=== PATIENT | female | born 1935 | race Caucasian/White ===

== ENCOUNTER 2022-07-10 03:41 | Emergency (ER) | payer BC, OTHER ==
[~2022-07-10] VITALS: Ht 162.6 cm; Wt 63.5 kg
[2022-07-10 03:41] VITALS: BP 200/90
--- NOTE | 2022-07-10 03:52 | NUR ---
PT IN ROOM 9 VIA EMS
--- NOTE | 2022-07-10 03:53 | NUR ---
DR BURNS AT BEDSIDE
[2022-07-10] MEDS ORDERED: NACL 0.9% 1,000 ML IV ONE (03:55)
[2022-07-10] MEDS ORDERED: hydrALAZINE 25 MG TAB PO ONE (04:00)
[2022-07-10 04:55] LABS: APPEARANCE,URINE CLEAR (CLEAR); BILIRUBIN,URINE NEGATIVE (NEGATIVE); BLOOD, URINE NEGATIVE (NEGATIVE); COLOR,URINE YELLOW (YELLOW); LEUKOCYTE ESTERASE ,URINE 1+ (NEGATIVE); NITRITE, URINE NEGATIVE (NEGATIVE); UGLUCOSE NEGATIVE (NEGATIVE)
[2022-07-10 05:10] LABS: RBC,URINE 0-5 /HPF (0-5)
[2022-07-10 05:40] LABS: ALBUMIN 3.8 g/dL (3.4-5.0); ANION GAP 13.2 (8-16); ASPARTATE AMINOTRANSFERASE 28 U/L (15-37); CARBON DIOXIDE 28.3 mmol/L (21-32); CHLORIDE 105 mmol/L (98-107); GLUCOSE 98 mg/dL (74-106); POTASSIUM 3.5 mmol/L (3.5-5.1); SODIUM SERUM 143 mmol/L (136-145); TOTAL BILIRUBIN 0.6 mg/dL (0.0-1.0); UREA NITROGEN, BLOOD 15 mg/dL (7-18)
--- NOTE | 2022-07-10 05:40 | NUR ---
FIRST CONTACT WITH PT. PT MEDICATED PER ORDERS GIVEN. AWAITING RESULTS.
[2022-07-10] MEDS ORDERED: hydrALAZINE 10 MG TAB ONE (05:42)
[2022-07-10 05:48] LABS: ACETAMINOPHEN < 0.5 ug/ml (10-30); SALICYLATE < 2.8 mg/dL (2.8-20.0)
[2022-07-10] MEDS ORDERED: CEPH-588 PO (06:48)
[2022-07-10 06:52] VITALS: BP 178/98
--- NOTE | 2022-07-10 06:52 | NUR ---
DR. BURNS AWARE OF B/P. PT OK TO BE DISCHARGED. DAUGHTER PRESENT.
--- NOTE | 2022-07-10 06:52 | NUR ---
Patient discharged with v/s stable. Written and verbal after care instructions given and explained. Patient alert, oriented and verbalized understanding of instructions. Wheel Chair Assisted with by caregiver. All questions addressed prior to discharge. ID band removed. Patient advised to follow up with PMD. Rx of KEFLEX given. Patient educated on indication of medication including possible reaction and side effects. Opportunity to ask questions provided and answered.
[2022-07-10 22:00] LABS: BASOPHILS # (AUTO) 0.2 K/uL (0.00-0.22); BASOPHILS % (AUTO) 3.3 % (0.0-2.0); EOSINOPHILS # (AUTO) 0.4 K/uL (0-0.4); EOSINOPHILS % (AUTO) 6.1 % (0.0-4.0); HEMATOCRIT 42.8 % (36-48); HEMOGLOBIN 14.6 g/dL (12.0-16.0); LYMPHOCYTES # (AUTO) 1.8 K/uL (2.5-16.5); LYMPHOCYTES % (AUTO) 29.8 % (20.5-51.1); MEAN CORPUSCULAR HEMOGLOBIN 31 pg (27-31); MEAN CORPUSCULAR HGB CONC 34 g/dL (33-37); MEAN CORPUSCULAR VOLUME 89.8 fL (80-94); MONOCYTES # (AUTO) 0.5 K/uL (0.8-1.0); MONOCYTES % (AUTO) 7.9 % (1.7-9.3); NEUTROPHILS # (AUTO) 3.1 K/uL (1.8-7.7); NEUTROPHILS % (AUTO) 52.9 % (42.2-75.2); PLATELET COUNT (AUTO) 195 K/uL (140-450); RED BLOOD CELL COUNT(AUTO) 4.77 MIL/uL (4.20-5.40); WHITE BLOOD COUNT (AUTO) 5.9 K/uL (4.8-10.8)
== END 2022-07-10 06:52 | disposition home or self-care (01) ==
LOC: MED 03:41
DX: R53.1 Weakness (principal); I10 Essential (primary) hypertension; Z86.73 Personal history of transient ischemic attack (TIA), and cerebral infarction without residual deficits; Z79.899 Other long term (current) drug therapy
CPT/HCPCS: 36415; 70450; 71045; 80053; 81001; 82550; 84484; 85025; 87086; 93005; 99285; G0480; G0482; Q0092

== ENCOUNTER 2022-12-25 17:20 | Inpatient (IN) | payer OTHER ==
[~2022-12-25] VITALS: Ht 172.7 cm; Wt 77.1 kg
[~2022-12-25 17:20] MED LIST: CEPH-588 PO
[2022-12-25 17:21] VITALS: BP 199/72; PULSE 78; RESP 17; TEMP 97.4; O2SAT 97
[2022-12-25] MEDS ORDERED: ONDANSETRON 4 MG/2 ML VIAL IVP ONE (17:35)
[2022-12-25] MEDS ORDERED: MORPHINE SULFATE 4 MG/ML SYR IVP ONE (17:35)
--- NOTE | 2022-12-25 17:53 | NUR ---
PT REFUSING IV AT THIS TIME
[2022-12-25 18:03] LABS: BASOPHILS # (AUTO) 0.1 K/uL (0.00-0.22); BASOPHILS % (AUTO) 0.7 % (0.0-2.0); EOSINOPHILS # (AUTO) 0.1 K/uL (0-0.4); EOSINOPHILS % (AUTO) 0.9 % (0.0-4.0); HEMATOCRIT 45.8 % (36-48); HEMOGLOBIN 15.4 g/dL (12.0-16.0); LYMPHOCYTES # (AUTO) 1.2 K/uL (2.5-16.5); LYMPHOCYTES % (AUTO) 10.5 % (20.5-51.1); MEAN CORPUSCULAR HEMOGLOBIN 30 pg (27-31); MEAN CORPUSCULAR HGB CONC 34 g/dL (33-37); MEAN CORPUSCULAR VOLUME 89.4 fL (80-94); MONOCYTES # (AUTO) 0.6 K/uL (0.8-1.0); MONOCYTES % (AUTO) 5.6 % (1.7-9.3); NEUTROPHILS # (AUTO) 9.3 K/uL (1.8-7.7); NEUTROPHILS % (AUTO) 82.3 % (42.2-75.2); PLATELET COUNT (AUTO) 239 K/uL (140-450); RED BLOOD CELL COUNT(AUTO) 5.12 MIL/uL (4.20-5.40); RED CELL DISTRIBUTION WIDTH 13.6 % (11.6-13.7); WHITE BLOOD COUNT (AUTO) 11.3 K/uL (4.8-10.8)
[2022-12-25] MEDS ORDERED: NACL 0.9% 1,000 ML IV ONE (18:25)
[2022-12-25 18:28] LABS: ALBUMIN 3.7 g/dL (3.4-5.0); ANION GAP 13.9 (8-16); ASPARTATE AMINOTRANSFERASE 27 U/L (15-37); CARBON DIOXIDE 28.1 mmol/L (21-32); CHLORIDE 103 mmol/L (98-107); GLUCOSE 133 mg/dL (74-106); LIPASE 40 U/L (73-393); SODIUM SERUM 141 mmol/L (136-145); TOTAL BILIRUBIN 0.5 mg/dL (0.0-1.0); UREA NITROGEN, BLOOD 16 mg/dL (7-18)
--- NOTE | 2022-12-25 19:02 | NUR ---
PT TAKEN TO CT VIA SHAMAR AT THIS TIME
--- NOTE | 2022-12-25 19:26 | NUR ---
PER PT PAIN IMPROVED. BUT WOULD LIKE SOME WATER. ER MD MADE AWARE- PER ER MD ICE CHIPS IS OK. GAVE ICE CHIPS TO PATIENT.
[2022-12-25] MEDS ORDERED: KETOROLAC 30 MG/ML VIAL IVP ONE (20:20)
--- NOTE | 2022-12-25 22:01 | NUR ---
assisted pt onto bed pain. pericare provided. pt tolerated well. pt safety measures are in place and pt attached to the chief of staff doctor
--- NOTE | 2022-12-25 23:18 | NUR ---
20:35- SPOKE WITH TARA Bundy MACHINE SPRING FORMER FOR CLINICALS
[2022-12-25] MEDS ORDERED: POTASSIUM CHLORIDE 10 MEQ TABER PO PRN (23:55)
[2022-12-25] MEDS ORDERED: HYDROcodone/APAP 7.5/325 MG 1 TAB PO PRN (23:55)
[2022-12-25] MEDS ORDERED: DOCUSATE SODIUM 100 MG GELCAP PO PRN (23:55)
[2022-12-25] MEDS ORDERED: ACETAMINOPHEN 325 MG TAB PO PRN (23:55)
[2022-12-25] MEDS ORDERED: NACL 0.9% 1,000 ML IV SCH (23:55)
[2022-12-25] MEDS ORDERED: ZOLPIDEM 5 MG TAB PO PRN (23:55)
[2022-12-25] MEDS ORDERED: ONDANSETRON 4 MG/2 ML VIAL IM/IVP PRN (23:55)
[2022-12-25] MEDS ORDERED: guaiFENesin DM 200/20 MG-10 ML 10 ML UDC PO PRN (23:55)
--- NOTE | 2022-12-26 00:40 | NUR ---
Patient will be admitted to care of BAHMAN WALTER. Admited to TELEMETRY. Will go to room 123A. Belongings list completed. Report to JACK.
[2022-12-26 00:55] VITALS: BP 158/77; PULSE 68; PULSE 77; RESP 18; TEMP 97.5; O2SAT 97
--- NOTE | 2022-12-26 00:55 | NUR ---
RECEIVED PT ADMIT FROM ER, ARRIVED BY SHAMAR. AWAKE, ALERT AND VERBALLY RESPONSIVE. PT ADMITTED WITH CHIEF COMPLAINTS OF ABDOMINAL PAIN. PT WITH HISTORY OF CVA AND HYPERTENSION. PT IS USING O2 INHALATION AND IS ON NPO.
--- NOTE | 2022-12-26 03:00 | NUR ---
PT IS SLEEPING WITH NO SOB OR DISTRESS. NO FACIAL GRIMACING.
[2022-12-26 04:00] VITALS: BP 153/69; PULSE 66; RESP 18; TEMP 97.5; O2SAT 97
[2022-12-26] MEDS ORDERED: SYN.075 PO (05:00)
[2022-12-26] MEDS ORDERED: FLUO10CA21 PO (05:00)
[2022-12-26] MEDS ORDERED: PANT40EC PO (05:00)
[2022-12-26] MEDS ORDERED: APR10 PO (05:00)
[2022-12-26] MEDS ORDERED: BENA40TA PO (05:01)
[2022-12-26] MEDS ORDERED: FURO-572 PO (05:01)
[2022-12-26] MEDS ORDERED: CLOP75TA55 PO (05:01)
--- NOTE | 2022-12-26 05:25 | NUR ---
CHECKED VITAL SIGNS, PT WELL RESPONSE, NO SOB OR DISTRESS. PT IS STABLE. IV FLUID IS INFUSING WELL.
[2022-12-26 05:26] LABS: BASOPHILS # (AUTO) 0.1 K/uL (0.00-0.22); BASOPHILS % (AUTO) 0.7 % (0.0-2.0); EOSINOPHILS # (AUTO) 0.1 K/uL (0-0.4); EOSINOPHILS % (AUTO) 1.6 % (0.0-4.0); HEMATOCRIT 40.3 % (36-48); HEMOGLOBIN 13.8 g/dL (12.0-16.0); LYMPHOCYTES % (AUTO) 23.3 % (20.5-51.1); MEAN CORPUSCULAR HEMOGLOBIN 31 pg (27-31); MEAN CORPUSCULAR HGB CONC 34 g/dL (33-37); MEAN CORPUSCULAR VOLUME 88.9 fL (80-94); MONOCYTES # (AUTO) 0.8 K/uL (0.8-1.0); MONOCYTES % (AUTO) 9.6 % (1.7-9.3); NEUTROPHILS # (AUTO) 5.7 K/uL (1.8-7.7); NEUTROPHILS % (AUTO) 64.8 % (42.2-75.2); PLATELET COUNT (AUTO) 215 K/uL (140-450); RED BLOOD CELL COUNT(AUTO) 4.53 MIL/uL (4.20-5.40); RED CELL DISTRIBUTION WIDTH 13.5 % (11.6-13.7); WHITE BLOOD COUNT (AUTO) 8.8 K/uL (4.8-10.8)
[2022-12-26 05:56] LABS: ALBUMIN 2.9 g/dL (3.4-5.0); ANION GAP 11.7 (8-16); ASPARTATE AMINOTRANSFERASE 34 U/L (15-37); CARBON DIOXIDE 30.5 mmol/L (21-32); CHLORIDE 106 mmol/L (98-107); GLUCOSE 113 mg/dL (74-106); POTASSIUM 4.2 mmol/L (3.5-5.1); SODIUM SERUM 144 mmol/L (136-145); TOTAL BILIRUBIN 0.6 mg/dL (0.0-1.0); UREA NITROGEN, BLOOD 17 mg/dL (7-18)
--- NOTE | 2022-12-26 07:16 | NUR ---
ASSUMED CONTINUITY OF CARE. INITIAL ASSESSMENT DONE. NO C/O PAIN. NO C/O N/V. RIGHT SIDE WEAKNESS, NOTED. KEEP COMFORTABLE ON BED. EXPLAINED USE OF CALL LIGHT/BED/TV/BATHROOM. VERBALIZED UNDERSTANDING. FALL PRECAUTION APPLIED. CALL LIGHT WITHIN REACH.
[2022-12-26 08:00] VITALS: BP 136/70; PULSE 67; PULSE 71; RESP 18; TEMP 98.1; O2SAT 99
--- NOTE | 2022-12-26 08:35 | NUR ---
PT. WENT TO RADIOLOGY VIA WHEELCHAIR WITH [facility] FOR SMALL BOWEL FOLLOW TROUGH PROCEDURE. IN STABLE CONDITION.
--- NOTE | 2022-12-26 08:55 | NUR ---
PATIENT HAS BEEN SCREENED AND CATEGORIZED LOW NUTRITION RISK. PATIENT WILL BE SEEN WITHIN 7 DAYS OF ADMISSION. 01/01/[address]
[2022-12-26] MEDS ORDERED: PANTOPRAZOLE 40 MG TABEC PO SCH (09:00)
--- NOTE | 2022-12-26 10:21 | NUR ---
CAME BACK FROM RADIOLOGY VIA WHEELCHAIR. KEEP COMFORTABLE ON BED. CALL LIGHT WITHIN REACH.
[2022-12-26 12:00] VITALS: BP 147/76; PULSE 74; PULSE 77; RESP 18; TEMP 98; O2SAT 98
[2022-12-26] MEDS ORDERED: TRAM50TA3 PO (12:13)
[2022-12-26] MEDS ORDERED: HYDR-5080 PO (13:40)
--- NOTE | 2022-12-26 13:50 | NUR ---
DR. FARR CAME AND SEEN PT..
--- NOTE | 2022-12-26 15:47 | NUR ---
DC [age] YRS OLD FEMALE PATIENT WAS ADMITTED FROM HOME WITH A DX OF ABDOMINAL PAIN DUE TO SBO. PATIENT HAS A HX OF HYPERTENSION AND CVA WITH RT SIDED WEAKNESS CT ABD SHOWED SBO SBFT ORDERED AND REVEALS IT WAS NEGATIVE. TOLERATED FULL LIQUID DIET. ADMINISTERED IVF AND IV PROTONIX. DC PLAN TO GO HOME WHEN STABLE. CM TO FOLLOW
[2022-12-26 16:00] VITALS: BP 159/75; PULSE 75; PULSE 78; RESP 18; TEMP 97.7; O2SAT 97
--- NOTE | 2022-12-26 17:30 | NUR ---
D/C HOME VIA WHEELCHAIR ACCOMPANIED BY PT. DAUGHTER -SANJAY. NO SOB, NOTED. IN STABLE CONDITION. INFORMED CHARGE NURSE GIDEON GRACE.
== END 2022-12-26 17:30 | disposition home or self-care (01) | DRG 389 ==
LOC: MED 17:20 → MTU 23:54
PROVIDERS: ADMIT Student in an Organized Health Care Education/Training Program; ATTEND Student in an Organized Health Care Education/Training Program
DX: K56.609 Unspecified intestinal obstruction, unspecified as to partial versus complete obstruction (principal); I69.351 Hemiplegia and hemiparesis following cerebral infarction affecting right dominant side; I10 Essential (primary) hypertension
CPT/HCPCS: 36415; 71045; 74250; 80053; 82150; 83605; 83690; 84484; 85025; 87081; 93005; 96361; 96374; 96375; 99285; J1885; J2270; J2405; Q0092

== ENCOUNTER 2023-10-19 16:22 | Inpatient (IN) | payer OTHER ==
[~2023-10-19] VITALS: Ht 157.5 cm; Wt 63.5 kg
[~2023-10-19 16:22] MED LIST changes: +APR10 PO; +BENA40TA PO; -CEPH-588 PO; +CLOP75TA55 PO; +FLUO10CA21 PO; +FURO-572 PO; +PANT40EC PO; +SYN.075 PO
[2023-10-19 16:34] VITALS: BP 143/53; PULSE 99; RESP 18; TEMP 98.6; O2SAT 100
[2023-10-19] MEDS: methylPREDNISolone SS 125 MG/2 ML VIAL IVP ONE (16:49)
[2023-10-19 17:14] VITALS: PULSE 89; RESP 20; O2SAT 88
[2023-10-19] MEDS: ALBUTEROL SULFATE/IPRATROPIU 3 ML SOL IH ONE (17:14)
[2023-10-19 17:32] LABS: BASOPHILS # (AUTO) 0.1 K/uL (0.00-0.22); BASOPHILS % (AUTO) 0.8 % (0.0-2.0); EOSINOPHILS # (AUTO) 0.2 K/uL (0-0.4); EOSINOPHILS % (AUTO) 2.8 % (0.0-4.0); HEMATOCRIT 44.3 % (36-48); HEMOGLOBIN 15.1 g/dL (12.0-16.0); LYMPHOCYTES # (AUTO) 2.5 K/uL (2.5-16.5); LYMPHOCYTES % (AUTO) 31.4 % (20.5-51.1); MEAN CORPUSCULAR HEMOGLOBIN 31 pg (27-31); MEAN CORPUSCULAR HGB CONC 34 g/dL (33-37); MEAN CORPUSCULAR VOLUME 91.5 fL (80-94); MONOCYTES # (AUTO) 0.8 K/uL (0.8-1.0); MONOCYTES % (AUTO) 9.4 % (1.7-9.3); NEUTROPHILS # (AUTO) 4.5 K/uL (1.8-7.7); NEUTROPHILS % (AUTO) 55.6 % (42.2-75.2); PLATELET COUNT (AUTO) 189 K/uL (140-450); RED BLOOD CELL COUNT(AUTO) 4.85 MIL/uL (4.20-5.40); RED CELL DISTRIBUTION WIDTH 13.6 % (11.6-13.7)
[2023-10-19 17:34] VITALS: O2SAT 96
[2023-10-19 17:51] LABS: ALANINE AMINOTRANSFERASE 19 U/L (12-78); ALBUMIN 3.6 g/dL (3.4-5.0); ALKALINE PHOSPHATASE 114 U/L (50-136); ANION GAP 12.1 (8-16); ASPARTATE AMINOTRANSFERASE 20 U/L (15-37); CALCIUM 8.9 mg/dL (8.5-10.1); CARBON DIOXIDE 30.9 mmol/L (21-32); CHLORIDE 99 mmol/L (98-107); CREATININE 1.1 mg/dL (0.6-1.3); GLUCOSE 132 mg/dL (74-106); SODIUM SERUM 139 mmol/L (136-145); TOTAL BILIRUBIN 0.7 mg/dL (0.0-1.0); TOTAL PROTEIN, SERUM 7.1 g/dL (6.4-8.2); UREA NITROGEN, BLOOD 11 mg/dL (7-18)
[2023-10-19 18:27] LABS: FLU A ANTIGEN negative (NEGATIVE); FLU B ANTIGEN NEGATIVE (NEGATIVE)
[2023-10-19] MEDS ORDERED: cefTRIAXone 1,000 MG VIAL ONE (18:56)
[2023-10-19] MEDS ORDERED: ALBUTEROL 0.083% 2.5 MG/3 ML NEBU INH PRN (20:55)
[2023-10-19] MEDS ORDERED: MORPHINE SULFATE 2 MG/ML SYR IVP PRN (20:55)
[2023-10-19] MEDS ORDERED: ONDANSETRON 4 MG/2 ML VIAL IVP PRN (20:55)
[2023-10-19] MEDS ORDERED: ACETAMINOPHEN 325 MG TAB PO PRN (20:55)
[2023-10-19 22:20] VITALS: PULSE 94; RESP 18; O2SAT 94; O2SAT 96
[2023-10-19 23:42] VITALS: PULSE 76; RESP 17; O2SAT 96
[2023-10-19] MEDS ORDERED: methylPREDNISolone SS 40 MG/ML VIAL ONE (23:42)
[2023-10-19] MEDS ORDERED: POTASSIUM CHLORIDE 10 MEQ TABER PO ONE (23:42)
[2023-10-19] MEDS: POTASSIUM CHLORIDE 10 MEQ TABER PO ONE (23:47)
[2023-10-19] MEDS: methylPREDNISolone SS 40 MG in WATER STERILE 1 ML IVP SCH (23:52)
[2023-10-20] VITALS (8 sets, daily range): BP systolic 135–212; BP diastolic 52–86; PULSE 60–92; RESP 18–21; TEMP 97.4–98.6; O2SAT 92–97
[2023-10-20] MEDS ORDERED: IPRATROPIUM 0.02% 0.5 MG/2.5 ML NEBU INH ONE (00:29)
[2023-10-20] MEDS: IPRATROPIUM 0.02% 0.5 MG/2.5 ML NEBU INH SCH (00:33)
[2023-10-20] MEDS ORDERED: methylPREDNISolone SS 40 MG/ML VIAL ONE ×3 (05:27→17:31)
[2023-10-20 06:47] LABS: BASOPHILS % (AUTO) 0.1 % (0.0-2.0); HEMATOCRIT 38.8 % (36-48); HEMOGLOBIN 13.3 g/dL (12.0-16.0); LYMPHOCYTES # (AUTO) 0.5 K/uL (2.5-16.5); LYMPHOCYTES % (AUTO) 10.9 % (20.5-51.1); MEAN CORPUSCULAR HEMOGLOBIN 31 pg (27-31); MEAN CORPUSCULAR HGB CONC 34 g/dL (33-37); MEAN CORPUSCULAR VOLUME 90.3 fL (80-94); MONOCYTES # (AUTO) 0.1 K/uL (0.8-1.0); MONOCYTES % (AUTO) 1.7 % (1.7-9.3); NEUTROPHILS # (AUTO) 4.3 K/uL (1.8-7.7); NEUTROPHILS % (AUTO) 87.3 % (42.2-75.2); PLATELET COUNT (AUTO) 178 K/uL (140-450); RED CELL DISTRIBUTION WIDTH 13.1 % (11.6-13.7); WHITE BLOOD COUNT (AUTO) 4.9 K/uL (4.8-10.8)
[2023-10-20 08:20] LABS: ANION GAP 14.1 (8-16); CALCIUM 8.6 mg/dL (8.5-10.1); CARBON DIOXIDE 27.9 mmol/L (21-32); CHLORIDE 103 mmol/L (98-107); CREATININE 0.8 mg/dL (0.6-1.3); GLUCOSE 144 mg/dL (74-106); SODIUM SERUM 141 mmol/L (136-145); UREA NITROGEN, BLOOD 13 mg/dL (7-18)
[2023-10-20] MEDS ORDERED: BUDESONIDE 0.5 MG/2 ML NEBU INH SCH (19:30)
[2023-10-20] MEDS: CLONIDINE HYDROCHLORIDE 0.1 MG TAB PO PRN (20:33)
[2023-10-20] MEDS: methylPREDNISolone SS 40 MG/ML VIAL ONE (23:27)
[2023-10-20] MEDS: LABETALOL 20 MG/4 ML VIAL IVP PRN (23:27)
[2023-10-20] MEDS: WATER STERILE 10 ML MC ONE (23:50)
[2023-10-21] VITALS (7 sets, daily range): BP systolic 147–185; BP diastolic 53–77; PULSE 55–87; RESP 18–20; TEMP 97.5–98.6; O2SAT 93–97
[2023-10-21] MEDS: LEVOTHYROXINE 0.075 MG TAB PO SCH (05:52)
[2023-10-21] MEDS: WATER STERILE 10 ML MC ONE (05:55)
[2023-10-21] MEDS: methylPREDNISolone SS 40 MG/ML VIAL ONE (05:55)
[2023-10-21] MEDS: FUROSEMIDE 20 MG TAB PO SCH (09:32)
[2023-10-21] MEDS: PANTOPRAZOLE 40 MG TABEC PO SCH (09:32)
[2023-10-21] MEDS: CLOPIDOGREL 75 MG TAB PO SCH (09:33)
[2023-10-21] MEDS: BENAZEPRIL 20 MG TAB PO SCH (09:33)
[2023-10-21] MEDS: FLUoxetine 10 MG CAP PO SCH (09:33)
[2023-10-21] MEDS: methylPREDNISolone SS 40 MG/ML VIAL IVP SCH (16:58)
[2023-10-22] MEDS ORDERED: PANTOPRAZOLE 40 MG INJ VIAL IVP SCH (09:00)
== END 2023-10-21 18:50 | disposition left against medical advice (07) | DRG 640 ==
LOC: MED 16:22 → OBSVTOIN 20:56 → MTU 20:56 → INTOOBSV 10-21 13:13 → OBSVTOIN 10-21 13:13
PROVIDERS: ADMIT Hospitalist; ATTEND Hospitalist
DX: E87.6 Hypokalemia (principal); J96.01 Acute respiratory failure with hypoxia; J45.901 Unspecified asthma with (acute) exacerbation; I48.20 Chronic atrial fibrillation, unspecified; I10 Essential (primary) hypertension; E03.9 Hypothyroidism, unspecified; Z20.822 Contact with and (suspected) exposure to COVID-19; Z86.73 Personal history of transient ischemic attack (TIA), and cerebral infarction without residual deficits
CPT/HCPCS: 36415; 71045; 80048; 80053; 83735; 83880; 84484; 85025; 85379; 87040; 87081; 93005; 94640; 96374; 96375; 97163-GP; 97530; 99291; J0696; J1644; J2920; J2930; J3490; J7644

== ENCOUNTER 2024-04-13 09:30 | Emergency (ER) | payer OTHER ==
[~2024-04-13] VITALS: Ht 160 cm; Wt 63.5 kg
[2024-04-13 09:34] VITALS: BP 221/107; PULSE 80; RESP 20; TEMP 97.3; O2SAT 98
[2024-04-13 10:12] LABS: BASOPHILS % (AUTO) 0.2 % (0.0-2.0); EOSINOPHILS # (AUTO) 0.4 K/uL (0-0.4); HEMATOCRIT 45.1 % (36-48); HEMOGLOBIN 15.3 g/dL (12.0-16.0); LYMPHOCYTES # (AUTO) 2.5 K/uL (2.5-16.5); LYMPHOCYTES % (AUTO) 36.3 % (20.5-51.1); MEAN CORPUSCULAR HEMOGLOBIN 31 pg (27-31); MEAN CORPUSCULAR HGB CONC 34 g/dL (33-37); MEAN CORPUSCULAR VOLUME 90.5 fL (80-94); MONOCYTES # (AUTO) 0.5 K/uL (0.8-1.0); NEUTROPHILS # (AUTO) 3.5 K/uL (1.8-7.7); NEUTROPHILS % (AUTO) 50.5 % (42.2-75.2); PLATELET COUNT (AUTO) 225 K/uL (140-450); RED BLOOD CELL COUNT(AUTO) 4.98 MIL/uL (4.20-5.40); RED CELL DISTRIBUTION WIDTH 13.6 % (11.6-13.7)
[2024-04-13 10:24] LABS: ANION GAP 11.6 (8-16); CALCIUM 9.1 mg/dL (8.5-10.1); CARBON DIOXIDE 28.9 mmol/L (21-32); CHLORIDE 103 mmol/L (98-107); CREATININE 0.9 mg/dL (0.6-1.3); GLUCOSE 107 mg/dL (74-106); POTASSIUM 3.5 mmol/L (3.5-5.1); SODIUM SERUM 140 mmol/L (136-145); UREA NITROGEN, BLOOD 16 mg/dL (7-18)
[2024-04-13 11:16] LABS: APPEARANCE,URINE CLEAR (CLEAR); BILIRUBIN,URINE NEGATIVE (NEGATIVE); BLOOD, URINE NEGATIVE (NEGATIVE); COLOR,URINE YELLOW (YELLOW); LEUKOCYTE ESTERASE ,URINE TRACE (NEGATIVE); NITRITE, URINE NEGATIVE (NEGATIVE); PROTEIN,URINE NEGATIVE (NEGATIVE); UGLUCOSE NEGATIVE (NEGATIVE); UROBILINOGEN,URINE 0.2 EU/dL (0.2 - 1)
[2024-04-13 11:36] LABS: BACTERIA,URINE OCCASSIONAL /HPF (None Seen); RBC,URINE 0-5 /HPF (0-5); WBC,URINE 0-5 /HPF (0-5)
[2024-04-13 11:37] LABS: SQUAMOUS EPITHELIAL CELL,UR 0-3 (FEW) /LPF (0-3 (FEW))
[2024-04-13 13:33] VITALS: BP 177/70; PULSE 80; RESP 20; TEMP 97.3; O2SAT 96
== END 2024-04-13 13:34 | disposition home or self-care (01) ==
LOC: MED 09:30
DX: I10 Essential (primary) hypertension (principal); G44.099 Other trigeminal autonomic cephalgias (TAC), not intractable; Z20.822 Contact with and (suspected) exposure to COVID-19; J45.909 Unspecified asthma, uncomplicated; Z86.73 Personal history of transient ischemic attack (TIA), and cerebral infarction without residual deficits; Z79.899 Other long term (current) drug therapy; Z90.49 Acquired absence of other specified parts of digestive tract; Z90.710 Acquired absence of both cervix and uterus
CPT/HCPCS: 36415; 70450; 71045; 80048; 81001; 84484; 85025; 93005; 99285